=== PATIENT | female | born 1945 | race Caucasian/White ===

== ENCOUNTER 2021-11-19 12:56 | Inpatient (IN) ==
[2021-11-19] MEDS ORDERED: SODIUM CHLORIDE 0.9% 1,000 ML IV STA (13:25)
[2021-11-19 13:33] LABS: Basophils % 0.3 % (0.0-0.8); Eosinophils # 0.2 10*3/uL (0.0-0.87); Eosinophils % 1.2 % (0.00-10.9); Hematocrit 32.6 VOL% (35.7-47.0); Hemoglobin 10.4 GM/DL (12.0-16.0); Immature Granulocytes Absolute 0.13 #; Lymphocytes # 0.7 10*3/uL (1.4-4.0); Lymphocytes % 5.3 % (21.3-54.2); Mean Corpuscular HGB Conc 31.9 GM/DL (32-36); Mean Corpuscular Volume 97.3 FL (87-102); Mean Platelet Volume 10.1 FL (9.6-12.0); Monocytes # 0.2 10*3/uL (0.11-0.8); Monocytes % 1.6 % (1.7-12.7); Neutrophils % 90.6 % (38.7-73.9); Platelet Count 152 T/CUMM (130-400); Red Blood Count 3.35 MC/CUMM (3.8-5.5); Red Cell Distribution Width 14.6 % (9.3-17.3); White Blood Count 12.7 T/CUMM (4-12)
[2021-11-19 13:52] LABS: Alanine Aminotransferase 15 U/L (13-56); Albumin 2.6 G/DL (3.4-5.0); Alkaline Phosphatase 79 U/L (45-117); Aspartate Amino Transferase 14 U/L (0-37); Bilirubin,Total < 0.39 MG/DL (0.20-1.00); Blood Urea Nitrogen 33 MG/DL (7-18); Calcium 9.5 MG/DL (8.5-10.1); Carbon Dioxide 12 MMOL/L (21-32); Chloride 113 MMOL/L (98-107); Glucose 295 MG/DL (74-106); Osmolality,Calculated 298.3 MOS/KG (273-304); Potassium 3.3 MMOL/L (3.5-5.1); Sodium 141 MMOL/L (136-145); Total Protein 5.8 G/DL (6.4-8.2)
[2021-11-19 13:52] LABS: Arterial Base Excess iSTAT -17 MMOL/L (-2.5-2.5); Arterial Bicarbonate iSTAT 6.6 MMOL/L (20-26); Arterial O2 Saturation iSTAT 98 % (95-100); Arterial PCO2 iSTAT 13 MM HG (35-48); Arterial PO2 iSTAT 111 MM HG (80-95); Arterial Total CO2 iSTAT 7 MMO/L (23-27); Arterial pH iSTAT 7.317 (7.35-7.45)
[2021-11-19 14:04] LABS: Bacteria,Urine Many /HPF (Few); Mucus,Urine Occasional /LPF (Occasional); RBC,Urine 14 /HPF (0-4); Squamous Epithelial Cell,Urine Occasional /HPF (0-10)
[2021-11-19 14:10] LABS: Glucose,Urine (UA) Negative (Negative); Ketones,Urine 15 mg/dL (Negative); Nitrite,Urine Negative (Negative); Protein,Urine >=300 mg/dL (Negative); Urine Appearance Slightly Hazy (Clear); Urine Color Yellow (Yellow); Urine Specific Gravity 1.025 (1.001-1.035)
[2021-11-19] MEDS ORDERED: cefTRIAXone 1,000 MG in SODIUM CHLORIDE 0.9% 100 ML IV STA (14:10)
[2021-11-19 14:11] LABS: Bilirubin,Urine Small mg/dL (Negative); Blood, Urine Moderate mg/dL (Negative)
[2021-11-19] MEDS ORDERED: SODIUM CHLORIDE 0.9% 1,750 ML IV ONE (14:11)
[2021-11-19] MEDS ORDERED: SODIUM BICARBONATE 50 MEQ/50 ML VIAL IV STA (16:32)
[2021-11-19] MEDS: PIPERACILLIN/TAZOBACTAM 3,375 MG in SODIUM CHLORIDE 0.9% 100 ML IV SCH ×2 (16:37→21:45)
[2021-11-19] MEDS ORDERED: ALBUTEROL 2.5 MG/3 ML NEB RESP TX PRN (16:42)
[2021-11-19] MEDS ORDERED: ONDANSETRON 4 MG/2 ML VIAL IV PRN (16:42)
[2021-11-19] MEDS ORDERED: GLUCAGON 1 MG VIAL IM PRN (16:59)
[2021-11-19] MEDS ORDERED: SODIUM CHLORIDE 0.9% 1,000 ML IV SCH (17:00)
[2021-11-19] MEDS ORDERED: DEXTROSE 10% 250 ML BAG IV PRN (17:08)
[2021-11-19 17:53] LABS: Eosinophils 1 % (0-10); Lymphocytes 8 % (20-55); Metamyelocytes 3 %; Myelocytes 1 %; Total Cells Counted 100
[2021-11-19 17:54] LABS: Burr Cells Few; Platelet Estimate Normal
[2021-11-19 17:55] LABS: Elliptocytes Few
[2021-11-19] MEDS: PANTOPRAZOLE 40 MG VIAL IV SCH (18:21)
[2021-11-19] MEDS: SODIUM BICARB INJ 50 MEQ in SODIUM CHLORIDE 0.45% 1,000 ML IV SCH (18:22)
[2021-11-19] MEDS: HYDROCORTISONE 100 MG VIAL IV SCH ×2 (18:45→23:23)
[2021-11-19] MEDS: INSULIN LISPRO 100 UNIT/ML SUBCUT SCH ×2 (18:45→23:19)
[2021-11-19 20:51] LABS: Calcium 6.4 MG/DL (8.5-10.1); Osmolality,Calculated 284.5 MOS/KG (273-304); Potassium 3.6 MMOL/L (3.5-5.1)
[2021-11-19] MEDS: HEPARIN 5,000 UNIT/1 ML VIAL SUBCUT SCH (21:45)
[2021-11-20] MEDS: ALBUTEROL/IPRATROPIUM 3 ML NEB RESP TX SCH ×4 (00:10→19:22)
[2021-11-20] MEDS: SODIUM BICARB INJ 50 MEQ in SODIUM CHLORIDE 0.45% 1,000 ML IV SCH (02:32)
[2021-11-20 05:43] LABS: Basophils # 0.1 10*3/uL (0.0-0.2); Basophils % 0.3 % (0.0-0.8); Hematocrit 29.8 VOL% (35.7-47.0); Hemoglobin 9.7 GM/DL (12.0-16.0); Immature Granulocytes % 9.3 %; Immature Granulocytes Absolute 1.77 #; Lymphocytes % 5.4 % (21.3-54.2); Mean Corpuscular HGB Conc 32.6 GM/DL (32-36); Mean Corpuscular Volume 95.8 FL (87-102); Mean Platelet Volume 9.8 FL (9.6-12.0); Monocytes # 0.6 10*3/uL (0.11-0.8); Monocytes % 3.2 % (1.7-12.7); Neutrophils % 81.8 % (38.7-73.9); Platelet Count 135 T/CUMM (130-400); Red Blood Count 3.11 MC/CUMM (3.8-5.5); Red Cell Distribution Width 14.6 % (9.3-17.3); White Blood Count 19.1 T/CUMM (4-12)
[2021-11-20] MEDS: HEPARIN 5,000 UNIT/1 ML VIAL SUBCUT SCH (05:49)
[2021-11-20] MEDS: HYDROCORTISONE 100 MG VIAL IV SCH ×4 (05:50→23:41)
[2021-11-20] MEDS: INSULIN LISPRO 100 UNIT/ML SUBCUT SCH ×6 (05:52→23:42)
[2021-11-20] MEDS: PIPERACILLIN/TAZOBACTAM 3,375 MG in SODIUM CHLORIDE 0.9% 100 ML IV SCH (05:53)
[2021-11-20] MEDS: PHENYLEPHRINE DRIP 40 MG/250 ML PREMIX IV PRN (06:08)
[2021-11-20 06:10] LABS: Band Neutrophils 2 % (0-10); Burr Cells Slight; Lymphocytes 5 % (20-55); Platelet Estimate Normal; Total Cells Counted 100
[2021-11-20 06:12] LABS: Calcium 8.4 MG/DL (8.5-10.1); Potassium 4.5 MMOL/L (3.5-5.1)
[2021-11-20 07:08] VITALS: BP 125/60
[2021-11-20] MEDS ORDERED: LEVOFLOXACIN INJ 750 MG/150 ML PREMIX IV ONE (08:00)
[2021-11-20] MEDS: ENOXAPARIN 30 MG/0.3 ML SYRINGE SUBCUT SCH (09:19)
[2021-11-20] MEDS: INSULIN GLARGINE 100 UNIT/ML SUBCUT SCH (09:19)
[2021-11-20] MEDS: MEROPENEM 500 MG in SODIUM CHLORIDE 0.9% 100 ML IV SCH ×2 (09:24→21:12)
[2021-11-20] MEDS: SODIUM BICARB INJ 100 MEQ in STERILE WATER INJ 1,000 ML IV SCH ×2 (10:00→17:06)
[2021-11-20 12:12] LABS: Osmolality,Calculated 298.4 MOS/KG (273-304); Potassium 4.1 MMOL/L (3.5-5.1)
[2021-11-20] MEDS ORDERED: ACETAMINOPHEN 325 MG TABLET PO PRN (15:50)
[2021-11-20] MEDS ORDERED: ACETAMINOPHEN 325 MG TABLET ONE (15:52)
[2021-11-20] MEDS ORDERED: DIGOXIN 0.5 MG/2 ML AMP IV ONE ×2 (16:01→16:30)
[2021-11-20] MEDS ORDERED: SODIUM CHLORIDE 0.9% 250 ML IV ONE (16:02)
[2021-11-20] MEDS: PANTOPRAZOLE 40 MG VIAL IV SCH (17:17)
[2021-11-20] MEDS ORDERED: MAGNESIUM SULF RIDER 4 GM/100 ML PREMIX IV ONE (18:00)
[2021-11-21] MEDS: ALBUTEROL/IPRATROPIUM 3 ML NEB RESP TX SCH ×5 (00:08→23:28)
[2021-11-21] MEDS: INSULIN LISPRO 100 UNIT/ML SUBCUT SCH ×4 (04:25→20:30)
[2021-11-21 04:48] LABS: Basophils % 0.2 % (0.0-0.8); Hematocrit 25.2 VOL% (35.7-47.0); Hemoglobin 8.6 GM/DL (12.0-16.0); Immature Granulocytes % 2.4 %; Immature Granulocytes Absolute 0.48 #; Lymphocytes # 0.9 10*3/uL (1.4-4.0); Lymphocytes % 4.6 % (21.3-54.2); Mean Corpuscular HGB Conc 34.1 GM/DL (32-36); Mean Corpuscular Volume 89.7 FL (87-102); Mean Platelet Volume 9.9 FL (9.6-12.0); Monocytes # 0.6 10*3/uL (0.11-0.8); Monocytes % 3.1 % (1.7-12.7); Neutrophils % 89.7 % (38.7-73.9); Platelet Count 127 T/CUMM (130-400); Red Blood Count 2.81 MC/CUMM (3.8-5.5); Red Cell Distribution Width 14.2 % (9.3-17.3); White Blood Count 20.4 T/CUMM (4-12)
[2021-11-21 05:08] LABS: Calcium 7.7 MG/DL (8.5-10.1); Osmolality,Calculated 291.3 MOS/KG (273-304); Potassium 3.5 MMOL/L (3.5-5.1)
[2021-11-21 05:21] LABS: Band Neutrophils 1 % (0-10); Lymphocytes 7 % (20-55); Total Cells Counted 100
[2021-11-21 05:22] LABS: Ovalocytes Slight
[2021-11-21] MEDS: SODIUM BICARB INJ 100 MEQ in STERILE WATER INJ 1,000 ML IV SCH ×4 (05:40→20:30)
[2021-11-21] MEDS: HYDROCORTISONE 100 MG VIAL IV SCH ×3 (06:32→16:10)
[2021-11-21] MEDS: INSULIN GLARGINE 100 UNIT/ML SUBCUT SCH (08:13)
[2021-11-21] MEDS: MEROPENEM 500 MG in SODIUM CHLORIDE 0.9% 100 ML IV SCH (08:13)
[2021-11-21] MEDS: ENOXAPARIN 30 MG/0.3 ML SYRINGE SUBCUT SCH (08:16)
[2021-11-21] MEDS ORDERED: ZINC OXIDE PASTE 113 GM TUBE TOP PRN (13:43)
[2021-11-21] MEDS: PANTOPRAZOLE 40 MG VIAL IV SCH (18:05)
[2021-11-21] MEDS: cefTRIAXone 1,000 MG in SODIUM CHLORIDE 0.9% 100 ML IV SCH (20:29)
[2021-11-22] MEDS: HYDROCORTISONE 100 MG VIAL IV SCH ×2 (00:01→08:31)
[2021-11-22] MEDS: ALBUTEROL/IPRATROPIUM 3 ML NEB RESP TX SCH ×4 (00:19→19:00)
[2021-11-22] MEDS: PHENYLEPHRINE DRIP 40 MG/250 ML PREMIX IV PRN (04:49)
[2021-11-22 05:11] LABS: Basophils % 0.1 % (0.0-0.8); Hematocrit 25.8 VOL% (35.7-47.0); Hemoglobin 8.9 GM/DL (12.0-16.0); Immature Granulocytes % 0.5 %; Immature Granulocytes Absolute 0.09 #; Lymphocytes % 5.7 % (21.3-54.2); Mean Corpuscular HGB Conc 34.5 GM/DL (32-36); Monocytes # 0.5 10*3/uL (0.11-0.8); Monocytes % 2.8 % (1.7-12.7); Neutrophils % 90.9 % (38.7-73.9); Platelet Count 129 T/CUMM (130-400); Red Cell Distribution Width 14.2 % (9.3-17.3); White Blood Count 17.7 T/CUMM (4-12)
[2021-11-22 05:35] LABS: Band Neutrophils 2 % (0-10); Lymphocytes 7 % (20-55); Microcytosis Slight; Ovalocytes Slight; Total Cells Counted 100
[2021-11-22 05:36] LABS: Platelet Estimate Adequate
[2021-11-22 05:42] LABS: Calcium 7.4 MG/DL (8.5-10.1); Osmolality,Calculated 290.4 MOS/KG (273-304); Potassium 2.8 MMOL/L (3.5-5.1)
[2021-11-22] MEDS: INSULIN LISPRO 100 UNIT/ML SUBCUT SCH ×4 (07:19→20:24)
[2021-11-22] MEDS ORDERED: LEVOFLOXACIN INJ 500 MG/100 ML PREMIX IV SCH (08:00)
[2021-11-22] MEDS: ENOXAPARIN 30 MG/0.3 ML SYRINGE SUBCUT SCH (08:31)
[2021-11-22] MEDS: INSULIN GLARGINE 100 UNIT/ML SUBCUT SCH (08:31)
[2021-11-22] MEDS: POTASSIUM CHLORIDE RIDER 10 MEQ/100 ML PREMIX IV SCH ×3 (08:37→11:05)
[2021-11-22] MEDS: POTASSIUM CHLORIDE 20 MEQ TABLET PO PRN ×6 (11:15→23:37)
[2021-11-22] MEDS: cefTRIAXone 1,000 MG in SODIUM CHLORIDE 0.9% 100 ML IV SCH (20:51)
[2021-11-22] MEDS ORDERED: SIMVASTATIN 10 MG TABLET PO SCH (21:00)
[2021-11-23] MEDS: ALBUTEROL/IPRATROPIUM 3 ML NEB RESP TX SCH ×2 (00:05→07:04)
[2021-11-23 06:39] LABS: Basophils % 0.3 % (0.0-0.8); Eosinophils # 0.2 10*3/uL (0.0-0.87); Eosinophils % 2.6 % (0.00-10.9); Hematocrit 26.6 VOL% (35.7-47.0); Hemoglobin 9.2 GM/DL (12.0-16.0); Immature Granulocytes % 1.1 %; Immature Granulocytes Absolute 0.09 #; Lymphocytes # 2.2 10*3/uL (1.4-4.0); Lymphocytes % 27.5 % (21.3-54.2); Mean Corpuscular HGB Conc 34.6 GM/DL (32-36); Mean Corpuscular Volume 89.3 FL (87-102); Mean Platelet Volume 10.3 FL (9.6-12.0); Monocytes # 0.5 10*3/uL (0.11-0.8); Monocytes % 6.8 % (1.7-12.7); Neutrophils % 61.7 % (38.7-73.9); Platelet Count 94 T/CUMM (130-400); Red Blood Count 2.98 MC/CUMM (3.8-5.5); Red Cell Distribution Width 14.6 % (9.3-17.3)
[2021-11-23 07:03] LABS: Calcium 7.8 MG/DL (8.5-10.1); Osmolality,Calculated 288.1 MOS/KG (273-304); Potassium 3.8 MMOL/L (3.5-5.1)
[2021-11-23] MEDS: INSULIN LISPRO 100 UNIT/ML SUBCUT SCH (07:29)
[2021-11-23] MEDS: ENOXAPARIN 30 MG/0.3 ML SYRINGE SUBCUT SCH (08:58)
[2021-11-23] MEDS: POTASSIUM CHLORIDE 20 MEQ TABLET PO PRN (08:59)
[2021-11-23] MEDS ORDERED: INSULIN GLARGINE 100 UNIT/ML SUBCUT SCH (09:00)
[2021-11-23] MEDS ORDERED: MEGESTROL 400 MG/10 ML UDCUP PO SCH (09:00)
[2021-11-23] MEDS ORDERED: LEVOFLOXACIN 500 MG TABLET PO ONE (09:00)
[2021-11-24] MEDS ORDERED: LEVOFLOXACIN 250 MG TABLET PO SCH (09:00)
== END 2021-11-23 12:39 | DRG 872 ==
LOC: N.ED 12:56 → N.EDINP 16:42 → SUATTDRO 16:42 → N.ICU 18:00
PROVIDERS: ADMIT Internal Medicine; ATTEND Internal Medicine